=== PATIENT | male | born 1960 | race African-American/Black ===

== ENCOUNTER 2019-12-18 09:29 | Day surgery (SDC) | payer OTHER ==
[2019-12-17 09:43] VITALS: BMI 27.1
[2019-12-18] MEDS ORDERED: MORPHINE SULFATE 10 MG/1 ML *VIAL ONE (10:49)
[2019-12-18] MEDS ORDERED: MIDAZOLAM HCL 2 MG/2 ML SINGLE DOSE VIAL ONE (11:04)
[2019-12-18] MEDS ORDERED: PROPOFOL 20 ML ONE (11:04)
[2019-12-18] MEDS ORDERED: LIDOCAINE HCL/PF 2% SDV 5ML VIAL ONE (11:05)
[2019-12-18] MEDS ORDERED: LIDOCAINE HCL 2% JELLY (5 ML/TUBE) ONE (11:06)
[2019-12-18] MEDS ORDERED: DEXAMETHASONE SOD PHOSPHATE 4 MG/1 ML VIAL ONE (11:16)
[2019-12-18] MEDS ORDERED: KETOROLAC TROMETHAMINE 30 MG/1 ML VIAL ONE (11:16)
[2019-12-18] MEDS ORDERED: ceFAZolin SODIUM 1 GM VIAL ONE (11:16)
[2019-12-18] MEDS ORDERED: ONDANSETRON 4 MG/2 ML VIAL ONE ×2 (11:16→12:16)
[2019-12-18] MEDS ORDERED: EPHEDRINE SULFATE/0.9% NACL/PF 50 MG/10 ML SYRINGE NR ONE (11:18)
[2019-12-18] MEDS ORDERED: SEVOFLURANE 250 ML BTL ONE (11:31)
[2019-12-18] MEDS ORDERED: oxyCODONE HCL 5 MG TABLET PO PRN ×2 (11:56)
[2019-12-18] MEDS ORDERED: PROMETHAZINE HCL 25 MG/1 ML VIAL IVPUSH PRN (11:56)
[2019-12-18] MEDS ORDERED: ONDANSETRON 4 MG/2 ML VIAL IVPUSH PRN (11:56)
[2019-12-18] MEDS ORDERED: ONDANSETRON 4 MG/2 ML VIAL IVPUSH ONE (12:15)
[2019-12-18 13:39] VITALS: TEMP 98
[2019-12-18] MEDS ORDERED: oxyCODONE HCL 5 MG TABLET ONE ×2 (13:40→14:26)
[2019-12-18 14:22] VITALS: BP 145/89; PULSE 68
[2019-12-18] MEDS ORDERED: fentaNYL CITRATE/PF 1,000 MCG/20 ML AMPUL IVPUSH PRN (14:32)
--- NOTE | 2019-12-18 14:47 | OP ---
DATE OF OPERATION: 12/18/2019 PREOPERATIVE DIAGNOSIS: Torn medial meniscus, left knee. POSTOPERATIVE DIAGNOSES: 1. 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 2. Hypertrophic synovium. 3. Extensive joint debris. PROCEDURES PERFORMED: 1. Operative arthroscopy of the left knee with partial medial and lateral meniscectomy. 2. Chondroplasty. 3. Synovectomy. 4. Extensive joint debridement. SURGEON: Delvis Rodriguez MD CAN STRIPER: None. ANESTHESIA: Roman Uriostegui MD TYPE OF ANESTHESIA: General anesthesia. DESCRIPTION OF PROCEDURE: The procedure consisted of the patient being brought into the operating room and gently transferred from the stretcher to the OR table with all bony prominences well padded. The left leg was prepared and draped in a sterile fashion. Patient was given intravenous antibiotics and copious irrigation throughout the procedure to minimize risk for infection. A complete risk, benefit, alternative discussion was conducted with the patient, which was inclusive of, but not limited to, infection, bleeding, , paralysis, increased pain, need for repeat surgery. Patient asked questions, understood the procedure, and desired to proceed with surgical treatment. Following sterile preparation and draping of the left leg, the leg was exsanguinated using a rubber Esmarch bandage and the tourniquet inflated to 350 mmHg. Suprapatellar, medial, and lateral joint line portals were used to induce the arthroscope and arthroscopic instruments. The knee was examined. There was noted to be hypertrophic synovium in the suprapatellar pouch. Partial synovectomy was performed. Inferior surface of the patella had damage consistent with chondromalacia, and this was smoothed using shaver and radiofrequency wand. Medial and lateral gutters were without plica or loose body. Medial meniscus was found to have a tear of the posterior torn, and this was resected using shaver and radiofrequency wand. Intercondylar region was noted to be have extensive joint debris, and extensive joint debridement was performed. Lateral meniscus was found to have a tear of the posterior horn, and this was resected using a shaver and radiofrequency wand. The knee was then copiously irrigated with sterile saline irrigant. The wounds were closed with 4-0 undyed Vicryl followed by Steri- Strips, Xeroform, 4 x 4's, combine, sterile Webril, DIMITRI bandages, and a knee immobilizer. Jose Diaz was critical for assisting during surgery, holding the arthroscope I used the drill and arthroscopic instruments. He provided critical support and safety in surgical treatment. Patient was then gently awoken from anesthesia without incident and transferred from the operating room to the recovery room in satisfactory condition. There were no intraoperative complications. DELVIS RODRIGUEZ M.D. [id number] [facility]OS[facility]ITALLesly
--- NOTE | 2019-12-22 16:53 | PATH ---
Surgical Pathology Report Patient Name: DELVIS AYALA [facility]. Rec. #: [id number] /Age/Gender: 1960 (Age: 59) / M Account: [id number] Location: [facility] AMBULATORY Taken: 12/18/2019 Received: 12/18/2019 Reported: 12/22/2019 Physicians: Delvis Rodriguez M.D. Specimen(s) Received LEFT KNEE SHAVINGS Clinical History Left knee internal derangement Final Diagnosis KNEE SHAVINGS, LEFT, ARTHROSCOPY: PIGMENTED VILLONODULAR SYNOVITIS (PVNS). Electronically Signed Viridiana Jamison M.D. Gross Description Received in formalin, labeled "left knee shavings," is a 4.0 x 3.0 x 0.4 cm. aggregate of vega-yellow soft tissue fragments. Entire specimen submitted in 2 cassettes. /12/18/2019 saudi12/18/2019
== END 2019-12-18 14:30 | disposition home or self-care (01) ==
LOC: FASU 09:29
PROVIDERS: ATTEND Orthopaedic Surgery
PROC: 0SBC4ZZ Excision of Right Knee Joint, Percutaneous Endoscopic Approach (ICD-10-PCS; 2019-12-18)
PROC: 0SBC4ZZ Excision of Right Knee Joint, Percutaneous Endoscopic Approach (ICD-10-PCS; 2019-12-18)
PROC: 0SQC4ZZ Repair Right Knee Joint, Percutaneous Endoscopic Approach (ICD-10-PCS; 2019-12-18)
PROC: 0SBC4ZZ Excision of Right Knee Joint, Percutaneous Endoscopic Approach (ICD-10-PCS; principal; 2019-12-18 10:30)
DX: S83.242A Other tear of medial meniscus, current injury, left knee, initial encounter (principal); S83.282A Other tear of lateral meniscus, current injury, left knee, initial encounter; M67.262 Synovial hypertrophy, not elsewhere classified, left lower leg; M25.861 Other specified joint disorders, right knee; X58.XXXA Exposure to other specified factors, initial encounter; Y93.9 Activity, unspecified; Y92.9 Unspecified place or not applicable
CPT/HCPCS: 29875; 29880; G0289; 88304-TC; 94760

== ENCOUNTER 2020-01-22 07:13 | Day surgery (SDC) | payer OTHER ==
[2020-01-21 10:07] VITALS: BMI 27.1
[2020-01-22] MEDS ORDERED: ONDANSETRON 4 MG/2 ML VIAL ONE (08:43)
[2020-01-22] MEDS ORDERED: SODIUM CHLORIDE 0.9% P/F 10 ML VIAL IJ ONE (08:43)
[2020-01-22] MEDS ORDERED: DEXAMETHASONE SOD PHOSPHATE 4 MG/1 ML VIAL ONE (08:43)
[2020-01-22] MEDS ORDERED: ceFAZolin SODIUM 1 GM VIAL ONE (08:43)
[2020-01-22] MEDS ORDERED: PROPOFOL 20 ML ONE ×2 (08:44)
[2020-01-22] MEDS ORDERED: MIDAZOLAM HCL 2 MG/2 ML SINGLE DOSE VIAL ONE ×2 (09:05→09:06)
[2020-01-22] MEDS ORDERED: ROPIVACAINE HCL 0.5% 30ML VIAL ONE (09:05)
[2020-01-22] MEDS ORDERED: ONDANSETRON 4 MG/2 ML VIAL IVPUSH PRN (09:22)
[2020-01-22] MEDS ORDERED: oxyCODONE HCL 5 MG TABLET PO PRN ×2 (09:22)
[2020-01-22] MEDS ORDERED: LACTATED RINGERS SOLUTION 1,000 ML IV SCH (09:30)
--- NOTE | 2020-01-22 11:57 | OP ---
DATE OF OPERATION: 01/22/2020 PREOPERATIVE DIAGNOSIS: Impingement right shoulder with rotator cuff tear. POSTOPERATIVE DIAGNOSES: 1. 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 2. Impingement from the acromion and hypertrophic bursal tissue to the right shoulder. 3. Impingement from the lateral clavicle including the articular portion to the right shoulder. 4. Rotator cuff tear, right shoulder. 5. Hypertrophic synovium, right shoulder. 6. Glenoid labral tear, right shoulder. PROCEDURES PERFORMED: 1. Manipulation of right shoulder with lysis and resection of adhesions. 2. Acromioplasty with extensive bursectomy to the right shoulder. 3. Cynthia procedure or lateral clavicular resection including articular portion, right shoulder. 4. Debridement of the torn rotator cuff, which was partial-thickness to the TSH. 5. Extensive synovectomy with extensive joint debridement. 6. Glenoid labral resection to the right shoulder. 7. Plastic surgical technique for portal closure. SURGEON: Delvis Stubbs MD RESERVES CLERK: LUIS Duarte ANESTHESIA: Roman Uriostegui MD TYPE OF ANESTHESIA: Regional interscalene block. DESCRIPTION OF PROCEDURE: The procedure consisted of the patient being brought into the operating room and gently transferred from the stretcher to the OR table with all bony prominences well padded. The right shoulder was prepared and draped in a sterile fashion, and the patient was given intravenous antibiotics and copious irrigation throughout the procedure to minimize risk for infection. A complete risk, benefit, alternative discussion was conducted with the patient, which was inclusive of, but not limited to, infection, bleeding, , paralysis, increased pain, need for repeat surgery. Patient asked questions, understood the procedure, and desired to proceed with surgical treatment. After sterile preparation and draping of the right shoulder, the patient had been placed in the right side up lateral decubitus position with all bony prominences well padded. A pillow was placed below the legs and a pillow between the legs to protect the neurovascular structures to the legs. A pneumatic conforming collins bag pillow was used to support the patient. An axillary roll had been placed to protect the lower shoulder. The neck was kept in good alignment throughout the procedure by the anesthesiologist, and the face was protected throughout the procedure by the anesthesiologist. Following the sterile preparation and draping of the patient's right shoulder, a gentle manipulation under anesthesia was performed. Initial abduction was 90 degrees, flexion 90 degrees, extension 10 degrees, internal rotation 60 degrees, external rotation 10 degrees. Following the gentle, slow manipulation of the right shoulder, abduction was to 170 degrees, flexion 170 degrees, extension 30 degrees, internal rotation 90 degrees, external rotation 30 degrees. Following the sterile preparation and draping, general traction had been applied to the right shoulder using a traction device, and approximately 10 pounds of traction was applied to the shoulder. Anterior, posterior, and lateral portals had been used to introduce the arthroscope and arthroscopic instruments. The anterior portal was fabricated using the inside out method over a transfer domenic to protect anterior neurovascular structures. The glenohumeral joint was evaluated. There were noted to be adhesions within the joint, and these were lysed and resected. Middle glenohumeral ligament and biceps tendon were found to be intact. Fraying was identified in the biceps tendon, and this was debrided using shaver and radiofrequency wand. There was noted to be extensive joint debris in the glenohumeral joint, and an extensive joint debridement was performed. The glenoid labrum was evaluated, and there was noted to be tearing of the glenoid labrum, and this was resected using a shaver and radiofrequency wand. Rotator cuff on the articular side was noted to have a tear, and this was debrided using shaver and radiofrequency wand. It had been probed prior to that to identify that this was a partial-thickness tear. The shoulder joint was copiously irrigated. Our attention was turned to the subacromial space. There was noted to be inflamed bursal tissue, and extensive bursectomy was performed. Rotator cuff on the bursal side was found to be intact. There was noted to be on examination of the acromion an edge of bone impinged upon the rotator cuff at the outer edge of the acromion. This was debrided using shaver and radiofrequency wand. A high-speed bur and shaver were used to resect a wedge of bone thick anterior, thin posteriorly. The lateral clavicle including the articular portion was also creating impingement. This was debrided, and high-speed bur and shaver were used to resect the lateral clavicle including the articular portion. A Cynthia procedure was performed. The bursal side rotator cuff was elevated and was noted to be intact. The shoulder was then copiously irrigated with sterile saline irrigant. The wounds were then closed with a plastic surgical technique using 4-0 undyed Vicryl, and the dressing included Steri-Strips, Xeroform, 4 x 4's, Combine, Elastoplast, and a shoulder immobilizer. It should be noted that throughout the procedure Jose Diaz was head start assistant teacher and held the arthroscope as I used the shaver and radiofrequency wand. His presence and assistance was vital for a safe surgical treatment of the patient. Following closure and dressing application, the patient was then gently awoken from anesthesia without incident and transferred from the operating room to the recovery room in excellent condition. There were no intraoperative complications. DELVIS STUBBS M.D. [id number]
[2020-01-22] MEDS ORDERED: oxyCODONE HCL 5 MG TABLET ONE (12:02)
[2020-01-22 12:45] VITALS: TEMP 97.7
[2020-01-22 13:56] VITALS: BP 162/94; PULSE 88
== END 2020-01-22 13:45 | disposition home or self-care (01) ==
LOC: FASU 07:13
PROVIDERS: ATTEND Orthopaedic Surgery
PROC: 0RNJ4ZZ Release Right Shoulder Joint, Percutaneous Endoscopic Approach (ICD-10-PCS; 2020-01-22)
PROC: 0RBJ4ZZ Excision of Right Shoulder Joint, Percutaneous Endoscopic Approach (ICD-10-PCS; 2020-01-22)
PROC: 0PB94ZZ Excision of Right Clavicle, Percutaneous Endoscopic Approach (ICD-10-PCS; 2020-01-22)
PROC: 0RNJXZZ Release Right Shoulder Joint, External Approach (ICD-10-PCS; 2020-01-22)
PROC: 0LQ14ZZ Repair Right Shoulder Tendon, Percutaneous Endoscopic Approach (ICD-10-PCS; principal; 2020-01-22 10:18)
DX: M75.101 Unspecified rotator cuff tear or rupture of right shoulder, not specified as traumatic (principal); M75.01 Adhesive capsulitis of right shoulder; M75.41 Impingement syndrome of right shoulder; M67.211 Synovial hypertrophy, not elsewhere classified, right shoulder; M24.111 Other articular cartilage disorders, right shoulder
CPT/HCPCS: 94760